=== PATIENT | female | born 1970 | race Caucasian/White ===

== ENCOUNTER 2016-06-03 16:37 | Emergency (ER) | payer OTHER | END 2016-06-03 20:06 | disposition home or self-care (01) | LOC: ER 16:37 | DX: S93.401A Sprain of unspecified ligament of right ankle, initial encounter (principal); X50.0XXA Overexertion from strenuous movement or load, initial encounter; M54.5 Low back pain; G89.29 Other chronic pain; F32.9 Major depressive disorder, single episode, unspecified; F17.210 Nicotine dependence, cigarettes, uncomplicated; Z79.899 Other long term (current) drug therapy | CPT/HCPCS: 29515; 72100; 73610; 81025; 99070; 99283-25 ==

== ENCOUNTER 2016-06-17 19:21 | Emergency (ER) | payer OTHER | END 2016-06-17 23:15 | disposition home or self-care (01) | LOC: ER 19:21 | DX: M25.521 Pain in right elbow (principal); W19.XXXA Unspecified fall, initial encounter | CPT/HCPCS: 73080; 99070; 99283 ==

== ENCOUNTER 2016-08-09 13:25 | Emergency (ER) | payer OTHER | END 2016-08-09 17:47 | disposition other institution (70) | LOC: ER 13:25 | DX: M25.572 Pain in left ankle and joints of left foot (principal); F32.9 Major depressive disorder, single episode, unspecified; F17.210 Nicotine dependence, cigarettes, uncomplicated; Z79.899 Other long term (current) drug therapy | CPT/HCPCS: 99283 ==